=== PATIENT | female | born 1945 | race Caucasian/White ===

== ENCOUNTER → 2017-01-28 | Outpatient (CLI) | payer OTHER | LOC: BHFA 14:30 | PROVIDERS: ATTEND Internal Medicine Cardiovascular Disease | DX: R06.02 Shortness of breath (principal); I11.9 Hypertensive heart disease without heart failure ==

== ENCOUNTER → 2017-07-11 | Outpatient (CLI) | payer OTHER ==
[~2017-07-11] MED LIST: GADOBUTROL 10 ML VIAL IVP ONE
== END ==
LOC: FIMAGING 15:06
PROVIDERS: ATTEND Family Medicine Geriatric Medicine
DX: R93.0 Abnormal findings on diagnostic imaging of skull and head, not elsewhere classified (principal)
CPT/HCPCS: 70553; A9585

== ENCOUNTER 2017-08-16 15:13 | Emergency (ER) | payer OTHER ==
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
[2017-08-16 16:10] VITALS: BP 168/77
== END 2017-08-16 16:49 | disposition home or self-care (01) ==
DX: S70.12XA Contusion of left thigh, initial encounter (principal); V01.90XA Pedestrian on foot injured in collision with pedal cycle, unspecified whether traffic or nontraffic accident, initial encounter

== ENCOUNTER → 2018-02-25 | Outpatient (CLI) | payer OTHER ==
[~2018-02-25] MED LIST changes: -GADOBUTROL 10 ML VIAL IVP ONE; +IOPAMIDOL (ISOVUE 370) 100 ML BTL IV ONE
== END ==
LOC: FIMAGING 10:14
PROVIDERS: ATTEND Internal Medicine Cardiovascular Disease
DX: R01.1 Cardiac murmur, unspecified (principal); I71.2 Thoracic aortic aneurysm, without rupture; J84.10 Pulmonary fibrosis, unspecified; I11.9 Hypertensive heart disease without heart failure; I43 Cardiomyopathy in diseases classified elsewhere
CPT/HCPCS: 71275; Q9967

== ENCOUNTER 2018-03-13 06:57 | Emergency (ER) | payer OTHER ==
[2018-03-13 07:09] VITALS: BP 174/87
--- NOTE | 2018-03-13 07:56 | EDPHY ---
H & P Stated Complaint: "rash" on abdomen---x 2 weeks--not painful not itchy Time Seen by Provider: 03/13/18 07:20 HPI/ROS: CHIEF COMPLAINT: Abdominal rash HISTORY OF PRESENT ILLNESS: This is a 72-year-old female who comes to the emergency department concerned about an abdominal rash that has been present for the last couple of weeks. It is neither painful or itchy. She has not been ill. She does not recall any new clothing, new products, or other potential allergens. She is concerned that it might be shingles, which she has had once before. REVIEW OF SYSTEMS: A ten system review of systems was performed and is negative with the exception of the items mentioned in the HPI. She also reports a chronic cough, no change recently. She has occasional shortness of breath, none now. Past medical history: 1. Hypothyroidism 2. Shingles in the past 3. Thoracic aortic aneurysm diagnosed on CT scan February 2018, no intervention planned Past surgical history: 1. section 2. Right knee replacement Social history: She lives with her daughter. She does not use tobacco products. She drinks alcohol occasionally. General Appearance: Alert. Vital signs reviewed. Blood pressure 174/87. Heart rate 104 at triage, she was not tachycardic at the time of my evaluation. Eyes: Pupils equal and round, no conjunctival injection, no discharge. Anicteric. ENT, Mouth: Mucous membranes are moist, no oropharyngeal erythema or edema. No intraoral rash. Neck: No lymphadenopathy, supple. Respiratory: Lungs are clear to auscultation; no wheezes, rales, or rhonchi. Cardiovascular: Regular rate and rhythm; no murmur, rub, or gallop. Gastrointestinal: Abdomen is soft and nontender, no masses or organomegaly, bowel sounds normal. Skin: Warm and dry, normal color. Scattered bilateral erythematous maculopapular rash over the abdomen extending from below her breasts on to the groin, similar rash but less diffuse on the back. No rash seen on the extremities, neck, or face. Back: Nontender to palpation over the thoracolumbar spine. No CVAT. Extremities: No lower extremity edema, no calf tenderness or swelling. Neurological: Alert and oriented. Moving all four extremities easily and equally. Psychiatric: Normal affect. - Medical/Surgical History Hx Asthma: No Hx Chronic Respiratory Disease: No Hx Diabetes: No Hx Cardiac Disease: No Hx Renal Disease: No Hx Cirrhosis: No Hx Alcoholism: No Hx HIV/AIDS: No Hx Splenectomy or Spleen Trauma: No Other PMH: HYPOTHYROID. thoracic aortic annueuy. 03/[address] scan - Social History Smoking Status: Never smoked Constitutional: Initial Vital Signs Temperature (C) 36.7 C 03/13/18 07:05 Heart Rate 104 H 03/13/18 07:05 Respiratory Rate 16 03/13/18 07:05 Blood Pressure 174/87 H 03/13/18 07:05 O2 Sat (%) 98 03/13/18 07:05 O2 Delivery Mode Room Air Allergies/Adverse Reactions: No Known Allergies Allergy (Verified 03/13/18 07:04) Home Medications: Medication Instructions Recorded Levothyroxine 08/16/17 Liothyronine Sodium 03/13/18 Medical Decision Making ED Course/Re-evaluation: Patient with an abdominal rash that extends from below her breasts on to the groin. There are few scattered erythematous maculopapular lesions on her back. I do not see rash elsewhere on her body. No excoriations. No vesicles. The rash is bilateral. I have assured her that this is not shingles. She was also concerned about ocular shingles and I have reassured her that she does not have ocular shingles. She complains that her eyes are dry and I have recommended artificial tears. I do not feel that she needs any further emergency department evaluation. She will see either her primary care physician or molding machine tender if this rash persists. In the meantime, she will try a light application of hydrocortisone cream that can be purchased [id number]. Differential Diagnosis: I considered a differential diagnosis that includes but is not limited to herpes zoster, contact dermatitis, allergic reaction, atopic dermatitis eczema common psoriasis Departure - Departure Disposition: Home, Routine, Self-Care Clinical Impression: Rash Condition: Good Instructions: Acute Rash (ED) Additional Instructions: As we discussed, this rash is not shingles. I am certain of this. Also, you do not have a shingles infection involving her eyes. I recommend some eye moistening drops for the dryness and itchiness. Do not use drops that are designed to get the read out, use drops that moist an only. For your rash I think that you should follow up with Dr. Del Rosario and/or Dr. Flores. Call Dr. Del Rosario's office today to see if you can schedule an appointment. If the rash worsens, if it becomes painful, if you have any new or concerning symptoms--you should be re-evaluated. Referrals: Devora Swan MD [Primary Care Provider] - As per Instructions Anushka Del Rosario MD [Medical Doctor] - As per Instructions
== END 2018-03-13 07:58 | disposition home or self-care (01) ==
DX: R21 Rash and other nonspecific skin eruption (principal); E03.9 Hypothyroidism, unspecified